=== PATIENT | female | born 1970 | race African-American/Black ===

== ENCOUNTER 2017-10-20 09:36 | Emergency (ER) | payer OTHER, MEDICARE ==
[2017-10-20 10:47] LABS: Hematocrit 40.4 % (36.0-47.0); Mean Platelet Volume 9.1 fL (7.4-10.4); Red Blood Cell (RBC) Count 4.43 mill/uL (4.20-5.40); White Blood Cell (WBC) Count 12.2 thou/uL (4.8-10.8)
[2017-10-20 10:49] LABS: Troponin I Less than 0.010 ng/mL (< 0.028)
[2017-10-20 10:59] LABS: ALT (SGPT) 20 U/L (8-55); AST (SGOT) 36 U/L (5-34); Alkaline Phosphatase 63 U/L (40-150); Anion Gap 17 mmol/L (10-20); BUN (Urea Nitrogen) 4 mg/dL (7.0-18.7); Bilirubin, Total 1.1 mg/dL (0.2-1.2); CK (CPK) 59 U/L (29-168); Calc. Creatinine Clearance 0 mL/min (70-130); Calcium 9.4 mg/dL (7.8-10.44); Carbon Dioxide 26 mmol/L (22-29); Chloride 102 mmol/L (98-107); Estimated GFR-MDRD Greater than 90; Globulin 3.6 g/dL (2.4-3.5); Protein, Total 7.2 g/dL (6.0-8.3)
--- NOTE | 2017-10-20 11:05 | CT ---
CT BRAIN NONCONTRAST: HISTORY: A 47-year-old female with syncope. FINDINGS: There is no midline shift or any other mass effect. There is no evidence of acute intracranial hemor rhage, large cortical infarct, obstructive hydrocephalus, or extraaxial fluid collection. The calvar ium is intact. IMPRESSION: No acute intracranial findings. jn [] POS: [facility]
--- NOTE | 2017-10-20 11:05 | RAD ---
PORTABLE CHEST: HISTORY: Syncopal episode. COMPARISON: 07/28/17 study. FINDINGS: Heart size and mediastinum are within normal limits. The lungs are clear of infiltrates. No signifi cant bony findings. IMPRESSION: No active intrathoracic disease. POS: [facility]
[2017-10-20 11:10] LABS: Band 5 % (5-11); Neutrophil 65 % (42-75); Reactive Lymphocytes 1 % (0-10)
--- NOTE | 2017-11-16 13:26 | EKG ---
Test Reason : Blood Pressure : / mmHG Vent. Rate : 066 BPM Atrial Rate : 066 BPM P-R Int : 138 ms QRS Dur : 072 ms QT Int : 456 ms P-R-T Axes : 047 -04 002 degrees QTc Int : 478 ms Normal sinus rhythm Normal ECG Confirmed by CISCO TELLEZ ([id number]), newspaper managing editor CATRINA FORD ([id number]) on 11/16/2017 1:26:06 PM Referred By: Confirmed By:CISCO TELLEZ
== END 2017-10-20 11:54 | disposition home or self-care (01) ==
LOC: ERS 09:36
DX: R55 Syncope and collapse (principal); I10 Essential (primary) hypertension; Z79.899 Other long term (current) drug therapy
CPT/HCPCS: 70450; 71010; 80053; 82550; 82553; 84484; 85025; 93005; 94760; 96360